=== PATIENT | female | born 1955 | race Caucasian/White ===

== ENCOUNTER 2017-03-06 06:49 | Emergency (ER) | payer OTHER ==
[~2017-03-06] VITALS: Ht 157.5 cm; Wt 59.0 kg
[2017-03-06] MEDS ORDERED: LORazepam 0.5 MG TAB PO ONE (07:45)
[2017-03-06 10:14] VITALS: BP 133/60
== END 2017-03-06 12:45 | disposition home or self-care (01) ==
LOC: ER 06:49 → EDBD 06:49 → ER 12:45
DX: M79.605 Pain in left leg (principal); F41.9 Anxiety disorder, unspecified; I10 Essential (primary) hypertension; Z86.73 Personal history of transient ischemic attack (TIA), and cerebral infarction without residual deficits; Z90.710 Acquired absence of both cervix and uterus
CPT/HCPCS: 73502